=== PATIENT | female | born 1950 | race Caucasian/White ===

== ENCOUNTER 2023-04-14 14:50 | Emergency (ER) | payer MEDICARE, OTHER, MEDICAID, SELFPAY ==
[2023-04-14 15:01] VITALS: BP 146/81; PULSE 94; RESP 18; TEMP 36.6; O2SAT 98
[2023-04-14 18:00] VITALS: BP 139/84; PULSE 89; RESP 16; TEMP 36.7; O2SAT 98
--- NOTE | 2023-04-14 18:09 | ED.GENADULT ---
HPI - General Adult General Chief complaint: Unspecified Stated complaint: missed dialysis Time Seen by Provider: 04/14/23 17:54 Source: patient Mode of arrival: EMS Limitations: no limitations History of Present Illness HPI narrative: This is a 73 year old female that presents to the ER for missed dialysis. Reports she is at [facility] and missed due to her transport to dialysis today. She does not have any symptoms. They sent her to the ER. Reports her daily sales audit clerk is Dr. Moseley. Denies chest pain or shortness of breath. Related Data Home Medications Medication Instructions Recorded Confirmed amlodipine 5 mg tablet 5 mg PO DAILY 02/27/19 12/16/19 aspirin 81 mg tablet,delayed 81 mg PO DAILY 02/27/19 12/16/19 release atorvastatin 20 mg tablet 20 mg PO DAILY 02/27/19 12/16/19 lisinopril 20 mg tablet 20 mg PO DAILY 02/27/19 12/16/19 timolol 0.5 % eye drops (Betimol) 1 drop ophthalmic (eye) Q12H 02/27/19 12/16/19 venlafaxine 150 mg 150 mg PO BID 02/27/19 12/16/19 capsule,extended release 24 hr (Effexor XR) dorzolamide 2 % eye drops 1 drop ophthalmic (eye) BID 12/16/19 12/16/19 Allergies Allergy/AdvReac Type Severity Reaction Status Date / Time Penicillins Allergy Unknown Verified 08/28/16 10:19 Review of Systems Review of Systems: CONSTITUTIONAL: Denies fever CARDIOVASCULAR: Denies chest pain RESPIRATORY: Denies dyspnea. All systems reviewed & are unremarkable except as noted in HPI and below PMFSH Past Medical History Medical History (Updated 04/14/23 @ 19:10 by Brandy Villasenor PA-C) Amputated toe Depression Glaucoma History of end stage renal disease Hypertension Type 2 diabetes mellitus with hyperglycemia Family History Family History Other Diabetes mellitus Family history of emphysema Family history of kidney disease Family history of lung disease Hypertension Social History Social History Smoking status: Never smoker Alcohol intake: never Exam Narrative: GENERAL: Well-appearing, well-nourished, and in no acute distress. HEAD: Normocephalic, atraumatic. EYES: EOMI. NECK: Supple. No adenopathy or masses. No JVD CHEST: Clear to auscultation. No respiratory distress. No wheezes rales or rhonchi HEART: Regular rate and rhythm. No murmur heard. Normal peripheral pulses. EXTREMITIES: Normal range of motion. Left BKA SKIN: Warm, dry, no rash. NEURO: No focal deficits. Alert and oriented x3. PSYCH: Normal mood and affect Course Course Emergency Course: Patient updated on her workup and agrees with plan of care Consultations Consultation #1: Spoke with patient's daily sales audit clerk, Dr. Moseley, about patient. Would like me to encourage her to at least let me check a potassium. She will need to have her facility arrange for her to get her dialysis on Sunday Date: 04/14/23 Vital Signs Vital signs: Vital Signs Temperature 97.8 F 04/14/23 15:01 Pulse Rate 94 04/14/23 15:01 Respiratory Rate 18 04/14/23 15:01 Blood Pressure 146/81 H 04/14/23 15:01 Pulse Oximetry 98 04/14/23 15:01 Temperature 98.1 F 04/14/23 18:00 Pulse Rate 89 04/14/23 18:00 Respiratory Rate 16 04/14/23 18:00 Blood Pressure 139/84 04/14/23 18:00 Pulse Oximetry 98 04/14/23 18:00 Medical Decision Making MDM Narrative Medical decision making narrative: Patient presents to the ER as she missed her outpatient dialysis today. She is currently asymptomatic. Her lungs are clear on exam. Vitals are stable. Patient initially was reluctant to let me get blood work. Spoke with patient's daily sales audit clerk, Dr. Moseley, about patient. Would like me to encourage her to at least let me check a potassium. She will need to have her facility arrange for her to get her dialysis on Sunday. No concerning electrolyte derangements on metabolic panel. She is to
[2023-04-14 19:06] LABS: Alanine Aminotransferase 15 U/L (6-35); Albumin Level 3.7 g/dL (3.5-5.1); Alkaline Phosphatase 85 U/L (38-126); Anion Gap 10 mmol/L (8-16); Aspartate Amino Transferase 22 U/L (14-36); Bilirubin,Total 0.4 mg/dL (0.2-1.3); Blood Urea Nitrogen 43 mg/dL (7-17); Calcium 9.1 mg/dL (8.4-10.2); Carbon Dioxide 25 mmol/L (22-30); Chloride 102 mmol/L (98-107); Estimated CRCL calculation 13 ml/min; Estimated Glomerular Filt Rate 11; Glucose 339 mg/dL (65-110); Potassium 4.9 mmol/L (3.4-5.0); Sodium 137 mmol/L (137-145)
[2023-04-14 20:10] VITALS: BP 124/60; PULSE 69; RESP 17; O2SAT 97
== END 2023-04-14 21:37 ==
PROVIDERS: Emergency Provider Physician Assistant; PCP Internal Medicine Infectious Disease
DX: I12.0 Hypertensive chronic kidney disease with stage 5 chronic kidney disease or end stage renal disease (principal); E11.22 Type 2 diabetes mellitus with diabetic chronic kidney disease; N18.6 End stage renal disease; Z99.2 Dependence on renal dialysis; E11.39 Type 2 diabetes mellitus with other diabetic ophthalmic complication; H42 Glaucoma in diseases classified elsewhere; F32.A Depression, unspecified; Z89.429 Acquired absence of other toe(s), unspecified side; Z79.82 Long term (current) use of aspirin; Z79.4 Long term (current) use of insulin
CPT/HCPCS: 36415; 80053; 99283

== ENCOUNTER 2023-04-24 07:26 | Outpatient (NON) | payer MEDICARE, SELFPAY ==
[2023-04-24 15:23] LABS: Influenza A QL RT-PCR Negative (Negative); Influenza B QL RT-PCR Negative (Negative); RSV RNA, RT-PCR Negative (Negative); SARS-CoV-2 RNA PCR Negative (Negative)
== END 2023-04-24 07:27 | disposition home or self-care (01) ==
PROVIDERS: PCP Internal Medicine Infectious Disease; Visit Provider Hospitalist
DX: R09.81 Nasal congestion (principal); Z20.822 Contact with and (suspected) exposure to COVID-19
CPT/HCPCS: 87637

== ENCOUNTER 2024-03-05 18:33 | Emergency (ER) | payer MEDICARE, SELFPAY ==
[2024-03-05 17:53] VITALS: BP 133/61; PULSE 86; RESP 20; TEMP 36.3; O2SAT 98
--- NOTE | 2024-03-05 18:38 | ED.WOUNDLAC ---
HPI - Wound/Laceration General Chief Complaint: Wound/Laceration Stated Complaint: skin tear History of Present Illness HPI narrative: 73-year-old female with history of CKD on hemodialysis on a Sunday/Sunday/Sunday schedule, insulin-dependent diabetes, hypertension, depression presents to the emergency department via EMS from [facility] or skin tear to her right forearm. Patient states earlier today she was at PT when she accidentally skin tear right forearm into the wall caused a skin tear. The shelter facility as attempted for bandages but unfortunately had been unable to control the bleeding therefore the patient was sent to the ED. Her last tetanus is unknown. She denies other injuries acquired. Patient states she is compliant with medications and dialysis. Related Data Home Medications ?Medication ?Instructions ?Recorded ?Confirmed ?Last Taken ?Type amlodipine 5 mg tablet 5 mg PO DAILY 02/27/19 12/16/19 Unknown History aspirin 81 mg tablet,delayed 81 mg PO DAILY 02/27/19 12/16/19 Unknown History release atorvastatin 20 mg tablet 20 mg PO DAILY 02/27/19 12/16/19 Unknown History lisinopril 20 mg tablet 20 mg PO DAILY 02/27/19 12/16/19 Unknown History timolol 0.5 % eye drops (Betimol) 1 drop ophthalmic (eye) Q12H 02/27/19 12/16/19 Unknown History venlafaxine 150 mg 150 mg PO BID 02/27/19 12/16/19 Unknown History capsule,extended release 24 hr (Effexor XR) dorzolamide 2 % eye drops 1 drop ophthalmic (eye) BID 12/16/19 12/16/19 Unknown History Allergies Allergy/AdvReac Type Severity Reaction Status Date / Time Penicillins Allergy Unknown Verified 08/28/16 10:19 Review of Systems Review of Systems: All systems reviewed & are unremarkable except as noted in HPI and below PMFSH Past Medical History Medical History History of end stage renal disease Type 2 diabetes mellitus with hyperglycemia Depression Hypertension Glaucoma Amputated toe Family History Family History Other Diabetes mellitus Family history of emphysema Family history of kidney disease Family history of lung disease Hypertension Social History Social History (Reviewed 03/05/24 @ 18:40 by RIKKI Brown Smoking status: Never smoker Alcohol intake: never Exam Narrative: GENERAL: Well-appearing, well-nourished, and in no acute distress. HEAD: Normocephalic, atraumatic. ENT: Nares clear, no rhinorrhea or epistaxis. Mucous membranes moist. NECK: Supple. CHEST: Clear to auscultation. No respiratory distress. HEART: Regular rate and rhythm. No murmur heard. Normal peripheral pulses. EXTREMITIES: Normal range of motion. No edema. SKIN: 2 cm superficial skin tear to the dorsum of the right forearm with active oozing. No deep structures or foreign bodies visualized. No tenderness or bony abnormality. Radial pulse 2 +. Sensation intact. NEURO: No focal deficits. Alert and oriented x3 Course Vital Signs Vital signs: Vital Signs Temperature 97.3 F L 03/05/24 17:53 Pulse Rate 86 03/05/24 17:53 Respiratory Rate 20 03/05/24 17:53 Blood Pressure 133/61 03/05/24 17:53 Pulse Oximetry 98 03/05/24 17:53 Oxygen Delivery Room Air 03/05/24 17:53 Temperature 97.3 F L 03/05/24 17:53 Pulse Rate 86 03/05/24 17:53 Respiratory Rate 20 03/05/24 17:53 Blood Pressure 133/61 03/05/24 17:53 Pulse Oximetry 98 03/05/24 17:53 Oxygen Delivery Room Air 03/05/24 17:53 MDM - Wound/Laceration MDM Narrative Medical decision making narrative: 73-year-old female presents to the ED from [facility] facility for a skin tear with uncontrolled bleeding that was obtained today. See HPI for further history. Vitals are stable. Exam is significant for 2 cm superficial skin tear with active oozing. No deep structures or foreign bodies visualized. No bony tenderness. She is neurovascularly intact. Local anesthetic applied with lidocaine with epi without successful hemostasis, therefore topical silver nitrate used with successful hemostasis. Pressure dressing applied and patient was advised to leave this on until tomorrow morning. Tetanus updated in the ED. Patient has no other complaints. She will be discharged back home to [facility]. She was given return precautions. Discharge Plan Discharge Clinical Impression: Skin tear Patient Disposition: Home, Self-Care Condition: Stable Instructions: Antibiotic Form, Skin Avulsion (ED) Additional Instructions: You were evaluated in the emergency department for skin tear PE review able to stop the bleeding. Your tetanus was also updated. Please keep the pressure dressing applied dull tomorrow morning. Return to the emergency department if the bleeding begins again is unable to be controlled, he develops signs of infection including fever, surrounding redness or drainage, or other concerning symptoms. Patient Language: Maltese Prescriptions: No Action Betimol 0.5 % drops 1 drop EACH EYE Q12H venlafaxine [Effexor XR] 150 mg capsule,extended release 24hr 150 mg PO BID amlodipine 5 mg tablet 5 mg PO DAILY lisinopril 20 mg tablet 20 mg PO DAILY atorvastatin 20 mg tablet 20 mg PO DAILY aspirin 81 mg tablet,delayed release (DR/EC) 81 mg PO DAILY dorzolamide 2 % drops 1 drop EACH EYE BID Humulin N NPH U-100 Insulin 100 unit/mL suspension See Rx Instructions SUB-Q BID Qty: 40 2RF Rx Instructions: 55u AM and 60u PM daily subcut daily (DME) OneTouch Ultra Blue Test Strip Strip See Rx Instructions .ROUTE .MEDSUPPLY Qty: 400 3RF Rx Instructions: use to check BS 4 times daily (DME) lancets [Ultra Thin Lancets] 30 gauge misc See Rx Instructions .ROUTE .MEDSUPPLY Qty: 400 3RF Rx Instructions: use to check BS 4 times daily (DME) pen needle, diabetic [BD Ultra-Fine Short Pen Needle] 31 gauge x 5/16 needle See Rx Instructions .ROUTE .MEDSUPPLY Qty: 500 3RF Rx Instructions: use with insulin injections 5 times daily Follow-up/Referrals: Diogo,MD Robe [Primary Care Provider] -
[2024-03-05] MEDS: TETANUS,DIPHTHERIA,AC PERTUSSIS ADULT (0.5 ML) BOOSTRIX IM (19:10)
== END 2024-03-05 20:27 ==
LOC: ANHED 19:02
PROVIDERS: Emergency Provider Physician Assistant; PCP Internal Medicine Infectious Disease
DX: S51.811A Laceration without foreign body of right forearm, initial encounter (principal); Z23 Encounter for immunization; E11.22 Type 2 diabetes mellitus with diabetic chronic kidney disease; I12.0 Hypertensive chronic kidney disease with stage 5 chronic kidney disease or end stage renal disease; N18.6 End stage renal disease; Z99.2 Dependence on renal dialysis; E11.39 Type 2 diabetes mellitus with other diabetic ophthalmic complication; H42 Glaucoma in diseases classified elsewhere; F32.A Depression, unspecified; Z89.429 Acquired absence of other toe(s), unspecified side; Z79.82 Long term (current) use of aspirin; Z79.899 Other long term (current) drug therapy; Z79.4 Long term (current) use of insulin; W22.01XA Walked into wall, initial encounter
CPT/HCPCS: 12001; 90471; 90715; 99283